=== PATIENT | female | born 1990 | race Caucasian/White ===

== ENCOUNTER 2020-06-01 14:34 | Observation (INO) | payer BC, MEDICAID ==
[~2020-06-01] VITALS: Ht 167.6 cm; Wt 58.6 kg
[~2020-06-01 14:34] MED LIST: BIOTIN5000 MCG PO; KLONOPIN 1MG1 MG PO; LAMICTAL150 MG PO; MIBELAS 24 FE1 EACH PO; RESTORIL30 MG PO; SEROQUEL 200MG200 MG PO; TOPROL XL 25MG25 MG PO
[2020-06-01 15:07] LABS: BASO % 0.8 % (0.0-2.0); EOS # 0.1 (0.0-0.7); EOS % 2.4 % (0-4.0); GRAN # 2.8 (1.4-6.5); GRAN % 57.1 % (42.2-75.2); HEMATOCRIT 36.5 % (37.0-47.0); HEMOGLOBIN 12.2 g/dl (12.5-16.0); LYMPH # 1.6 (1.2-3.4); LYMPH % 31.1 % (20.0-51.0); MEAN CELL VOLUME 95 fl (80.0-100.0); MEAN CORPUSCULAR HEMOGLOBIN 32 pg (27.0-31.0); MEAN CORPUSCULAR HGB CONC 33 g/dl (33.0-37.0); MEAN PLATELET VOLUME 12.1 fl (7.4-10.4); MONO # 0.4 (0.1-0.6); MONO % 8.4 % (1.7-9.3); PLATELET COUNT 150 K/mm3 (130-400); RED BLOOD COUNT 3.84 M/mm3 (4.10-5.30); REDCELL DISTRIBUTION WIDTH-CV 12.7 % (11.5-14.5)
[2020-06-01 15:11] LABS: INR 1.1 (0.8-3.0); PROTHROMBIN TIME 11.9 SECONDS (9.7-12.8)
[2020-06-01 15:14] LABS: PARTIAL THROMBOPLASTIN TIME 29.7 SECONDS (26.0-37.0)
[2020-06-01 15:15] LABS: ALANINE AMINOTRANSFERASE 10 U/L (4-34); ALBUMIN 4.6 gm/dL (3.5-5.0); ALKALINE PHOSPHATASE 63 U/L (50-136); ANION GAP 9 mmol/L (7-16); AST,SGOT 26 U/L (15-37); BILIRUBIN,TOTAL 0.5 mg/dL (0.0-1.0); BLOOD UREA NITROGEN 9 mg/dL (7-17); CALCIUM 9.2 mg/dL (8.4-10.2); CARBON DIOXIDE 23 mmol/L (22-30); CHLORIDE 106 mmol/L (98-107); CREATININE, serum 0.69 (0.52-1.25); GLUCOSE 90 mg/dL (74-106); POTASSIUM 3.9 mmol/L (3.4-5.0); SODIUM 137 mmol/L (137-145); TOTAL PROTEIN 7.7 gm/dL (6.4-8.2)
[2020-06-01 15:18] LABS: C-REACTIVE PROTEIN < 0.5 mg/dL (0.0-0.9)
[2020-06-01] MEDS ORDERED: MIBELAS 24 FE1 EACH PO (20:00)
[2020-06-01] MEDS ORDERED: FLOMAX 0.40.4 MG/CAP PO (20:01)
[2020-06-01] MEDS ORDERED: TOPROL XL 25MG25 MG PO (20:02)
[2020-06-01] MEDS ORDERED: COGENTIN 2MG2 MG/TA1 PO (20:04)
--- NOTE | 2020-06-01 21:10 | NUR ---
Pt arrived to room 316 from ER at this time. Pt alert and oriented x4. Pt oriented to room and call light. Will review med rec, review allergies, pharmacy and complete assessment. Pt denies needs/concerns at this time. Call light within reach. Will continue to monitor.
[2020-06-01 21:25] VITALS: BP 109/49; PULSE 66; TEMP 99.6
[2020-06-01 23:49] VITALS: BP 100/53; PULSE 71; TEMP 98.2
[2020-06-02] VITALS (7 sets, daily range): BP systolic 97–110; BP diastolic 49–68; PULSE 59–95; TEMP 97.3–98.9
--- NOTE | 2020-06-02 06:14 | NUR ---
Pt rested well overnight. Pt stand by assist to bathroom with walker at this time. IVF infusing per orders to right ac IV. Pt denies any needs/concerns at this time. Call light within reach. Bed alarm on.
[2020-06-02 07:56] LABS: BASO % 0.5 % (0.0-2.0); EOS # 0.1 (0.0-0.7); EOS % 3.8 % (0-4.0); GRAN # 1.1 (1.4-6.5); GRAN % 29.8 % (42.2-75.2); HEMOGLOBIN 11.7 g/dl (12.5-16.0); LYMPH # 2.1 (1.2-3.4); LYMPH % 57.1 % (20.0-51.0); MEAN CELL VOLUME 95 fl (80.0-100.0); MEAN CORPUSCULAR HEMOGLOBIN 32 pg (27.0-31.0); MEAN CORPUSCULAR HGB CONC 34 g/dl (33.0-37.0); MONO # 0.3 (0.1-0.6); MONO % 8.8 % (1.7-9.3); PLATELET COUNT 126 K/mm3 (130-400); RED BLOOD COUNT 3.67 M/mm3 (4.10-5.30); REDCELL DISTRIBUTION WIDTH-CV 12.5 % (11.5-14.5)
[2020-06-02 08:01] LABS: HEMATOCRIT 34.9 % (37.0-47.0)
[2020-06-02 08:12] LABS: CALCIUM 8.4 mg/dL (8.4-10.2); CREATININE, serum 0.65 (0.52-1.25); POTASSIUM 3.7 mmol/L (3.4-5.0)
--- NOTE | 2020-06-02 08:46 | NUR ---
Assessment complete. Patient laying in bed at this time. Answering questions with gestures and head nods at this time. During neuro check she was able to speak but it was extrememly stuttered and difficult to understand. She denies pain at this time. Legs move on bed but are not able to be lifted, hand grasps are weak. IV site is CD&I, IVF currently infusing. No other needs were expressed at this time. Fall precautions are in place, call light is in reach.
--- NOTE | 2020-06-02 09:25 | NUR ---
Initial visit; Patient thanked [employer] for offering prayer and God's blessings. Areli would benefit from continued visits from [employer].
--- NOTE | 2020-06-02 13:48 | NUR ---
SW met with the patient to discuss discharge plan. The patient is having difficulties with her speech and have difficulties finding words during intake. The patient lives in [place] with her , Ruddy (ph#[phone]). She reports independence with ADLs and has a walker and wheelchair. The patient's PCP is Dr. Linda Rosenberg and she receives her medications at [facility]. The patient does not have a DPOA-HC completed. SW discussed home health services. The patient states that her and her are already talking to somone about getting services. The patient plans to return home with her upon discharge. SW attempted to contact the patient's to review d/c plan. SW left him a voicemail.
--- NOTE | 2020-06-02 13:52 | NUR ---
Primary nurse was assisted with [id number] patient care by [employer] student Sis Schultz and [employer] instructor Addie Mckeon RN-.
--- NOTE | 2020-06-02 17:04 | NUR ---
Patient has had a good day. Family mayes dmultiple times throughh the day stating that the patient was in severe distress but everytime I went to check on the patient she denied needs and stated she was fine. Because of this I made sure I asked the mother and what their concerns were specifically so I could address them and no specific needs were given. I have checked on patient multiple times and she continues to deny needs. Will contniue to monitor. Call light is in reach.
--- NOTE | 2020-06-02 21:35 | NUR ---
Pt assessment completed and documented. Pt resting in bed at this time watching television. Pt alert and oriented x4. Pt with aphasia and continues to have difficulty speaking. Complaints of 5/10 neck, shoulder and back pain. Pt states she does not need anything for pain at this time. INT to left ac CDI. Pt assisted to bathroom standby assist with walker. Pt denies any needs/concerns at this time. Call light within reach. Will continue to monitor
[2020-06-03] VITALS: BP 105/52; PULSE 54; TEMP 98
[2020-06-03 03:08] VITALS: BP 104/52; PULSE 57; TEMP 97.7
--- NOTE | 2020-06-03 05:04 | NUR ---
Pt has rested well overnight. Pt denies any needs/concerns at this time. Call light within reach. Bed alarm on. Will continue to monitor
[2020-06-03 05:50] VITALS: BP 100/49; PULSE 69; TEMP 97.5
--- NOTE | 2020-06-03 07:28 | NUR ---
Report given to CYNTHIA Whitehead
[2020-06-03 07:52] VITALS: BP 98/54; PULSE 95; TEMP 97.8
[2020-06-03 08:11] LABS: BASO % 0.8 % (0.0-2.0); EOS # 0.2 (0.0-0.7); EOS % 4.8 % (0-4.0); GRAN # 1.1 (1.4-6.5); GRAN % 31.3 % (42.2-75.2); HEMOGLOBIN 12.4 g/dl (12.5-16.0); LYMPH # 1.9 (1.2-3.4); LYMPH % 53.8 % (20.0-51.0); MEAN CELL VOLUME 95 fl (80.0-100.0); MEAN CORPUSCULAR HEMOGLOBIN 33 pg (27.0-31.0); MEAN CORPUSCULAR HGB CONC 35 g/dl (33.0-37.0); MEAN PLATELET VOLUME 11.6 fl (7.4-10.4); MONO # 0.3 (0.1-0.6); MONO % 9.3 % (1.7-9.3); PLATELET COUNT 140 K/mm3 (130-400); REDCELL DISTRIBUTION WIDTH-CV 12.7 % (11.5-14.5)
[2020-06-03 08:12] LABS: HEMATOCRIT 35.9 % (37.0-47.0)
[2020-06-03 08:25] LABS: CALCIUM 8.8 mg/dL (8.4-10.2); CREATININE, serum 0.59 (0.52-1.25); POTASSIUM 3.8 mmol/L (3.4-5.0)
[2020-06-03 11:21] LABS: TOTAL PROTEIN,CSF 24 mg/dL (15-45)
[2020-06-03 11:31] LABS: CSF APPEARANCE CLEAR; CSF COLOR COLORLESS; CSF RBC 8 /mm3 (0-0)
[2020-06-03 11:47] LABS: CSF MONONUCLEAR 2 % (70-100); CSF POLYMORPHONUCLEAR 0 % (0-6)
[2020-06-03 12:52] VITALS: BP 94/51; PULSE 72; TEMP 98.1
--- NOTE | 2020-06-03 13:32 | NUR ---
Primary nurse was assisted with [id number] patient care by [employer] student Sis Schultz and [employer] instructor Addie Mckeon RN-.
--- NOTE | 2020-06-03 13:40 | NUR ---
POPEYE attended clinical rounds. The patient is to have a lumbar puncture today and d/c afterwards. The hospitalist would like for the patient to follow up with her psychiatrist, Dr. Diehl, in a week. A phone appointment had been scheduled on Saturday, 06/06, at 1200. The patient is having difficulties with her speech and has not been able to talk. POPEYE attempted to contact Dr. Diehl's, office to reschedule for a in person appointment. POPEYE left them a voicemail. POPEYE also received a phone call from the patient's mother, Betsey. Betsey reports that she lives in [place] and had just stayed with the patient for 10 days. She plans on coming back to see the patient and go with her to her neurology appointment on June 27. She states that the patient has also been receiving outpatient therapy at [facility]. Betsey would like an update from the doctor or [facility]. POPEYE notified Lory HOUSTON.
[2020-06-06 14:15] LABS: HSV 2 DNA PCR QUAL Not Detected (())
== END 2020-06-03 16:15 | disposition home or self-care (01) ==
LOC: COL.ER 14:34 → MEDICAL 17:56
PROVIDERS: Emergency Medicine; Physician Assistant; ADMIT Student in an Organized Health Care Education/Training Program
DX: F80.1 Expressive language disorder (principal); R53.1 Weakness; F31.9 Bipolar disorder, unspecified; G47.00 Insomnia, unspecified; R33.9 Retention of urine, unspecified; R45.851 Suicidal ideations; R26.2 Difficulty in walking, not elsewhere classified; E05.80 Other thyrotoxicosis without thyrotoxic crisis or storm; Z88.8 Allergy status to other drugs, medicaments and biological substances; Z79.899 Other long term (current) drug therapy
CPT/HCPCS: 99232-AI; A9585; G0378; J1650; J7030; Q9967

== ENCOUNTER 2020-06-15 10:45 | Outpatient (RCR) | payer BC, MEDICAID ==
[~2020-06-15 10:45] MED LIST changes: +COGENTIN 2MG2 MG/TA1 PO; +FLOMAX 0.40.4 MG/CAP PO
== END 2020-07-26 | disposition home or self-care (01) ==
LOC: WSPT
DX: G72.2 Myopathy due to other toxic agents (principal)

== ENCOUNTER 2020-11-22 10:30 | Outpatient (RCR) | payer MEDICAID | END 2021-01-19 11:35 | LOC: WSPT 10:30 | DX: R26.9 Unspecified abnormalities of gait and mobility (principal); Z79.899 Other long term (current) drug therapy ==

== ENCOUNTER 2021-02-16 11:00 | Outpatient (RCR) | payer MEDICAID | END 2021-02-20 12:25 | disposition home or self-care (01) | LOC: WSPT | DX: R26.9 Unspecified abnormalities of gait and mobility (principal) ==

== ENCOUNTER 2021-02-23 19:52 | Emergency (ER) | payer MEDICAID ==
[~2021-02-23] VITALS: Ht 167.6 cm; Wt 59.1 kg
[2021-02-23 20:38] LABS: BASO % 0.8 % (0.0-2.0); EOS # 0.1 (0.0-0.7); EOS % 1.4 % (0-4.0); GRAN # 2.6 (1.4-6.5); HEMATOCRIT 36.2 % (37.0-47.0); HEMOGLOBIN 12.4 g/dl (12.5-16.0); LYMPH # 1.9 (1.2-3.4); LYMPH % 37.7 % (20.0-51.0); MEAN CELL VOLUME 95 fl (80.0-100.0); MEAN CORPUSCULAR HEMOGLOBIN 33 pg (27.0-31.0); MEAN CORPUSCULAR HGB CONC 34 g/dl (33.0-37.0); MEAN PLATELET VOLUME 10.9 fl (7.4-10.4); MONO # 0.4 (0.1-0.6); MONO % 7.9 % (1.7-9.3); PLATELET COUNT 169 K/mm3 (130-400); RED BLOOD COUNT 3.81 M/mm3 (4.10-5.30); REDCELL DISTRIBUTION WIDTH-CV 12.4 % (11.5-14.5)
[2021-02-23 20:51] LABS: ALBUMIN 4.2 gm/dL (3.5-5.0); BILIRUBIN,TOTAL 0.5 mg/dL (0.0-1.0); C-REACTIVE PROTEIN 1.1 mg/dL (0.0-0.9); CREATININE, serum 0.85 (0.52-1.25); TOTAL PROTEIN 7.5 gm/dL (6.4-8.2)
[2021-02-23 21:01] LABS: COLLECTION METHOD CLEAN CATCH
[2021-02-23 21:22] LABS: PH 7 (5-8); URINE APPEARANCE Hazy; URINE BACTERIA Rare /hpf; URINE BILIRUBIN Negative (NEGATIVE); URINE BLOOD Negative (NEGATIVE); URINE COLOR Yellow; URINE GLUCOSE Negative (NEGATIVE); URINE KETONE Negative (NEGATIVE); URINE LEUKOCYTE ESTERASE 2+ (NEGATIVE); URINE NITRATE Negative (NEGATIVE); URINE PROTEIN(semi-quant) Negative (NEGATIVE); URINE RBC 0-2 /hpf; URINE UROBILINOGEN Negative (NEGATIVE)
[2021-02-23 22:49] VITALS: BP 117/74; PULSE 62; TEMP 98.3
[2021-02-23] MEDS ORDERED: CEFTIN500 MG PO (22:50)
== END 2021-02-23 22:49 | disposition home or self-care (01) ==
LOC: COL.ER 19:52
PROVIDERS: Nurse Practitioner
DX: N39.0 Urinary tract infection, site not specified (principal)
CPT/HCPCS: J0696

== ENCOUNTER 2021-03-02 11:15 | Outpatient (RCR) | payer MEDICAID ==
[~2021-03-02 11:15] MED LIST changes: +CEFTIN500 MG PO
== END 2021-03-02 12:00 | disposition home or self-care (01) ==
LOC: WSPT 11:15
DX: R26.9 Unspecified abnormalities of gait and mobility (principal)